=== PATIENT | male | born 2000 ===

== ENCOUNTER 2019-03-10 04:50 | Emergency (ER) | payer OTHER ==
--- NOTE | 2019-03-10 06:39 | ED ---
Psychiatric Complaint - HPI Summary HPI Summary: Pt is a 18yo M presenting voluntarily to the ED by police after allegedly making statements to his friends over tonight and throughout the past week regarding suicidal thoughts. He denies this. According to records and collateral (Ellie Urban, counselor/therapist at [facility]) pt has been making these statements after drinking ETOH tonight starting at around midnight (5 hours [employer]AD[employer] DIES). However, he has also allegedly been making these statements over the past week. Stating things like "goodbye" and "I won't kill myself because there are too many people around." Pt denies SI/HI. Denies self harm. Denies ETOH use or drug use. States he is here voluntary because was told by police if he did not come now, he would have to come within the next 72 hours as involuntary. Denies any pain. Denies drug use. - History Of Current Complaint Chief Complaint: EDMentalHealth Time Seen by Provider: 03/10/19 05:42 Hx Obtained From: Patient Onset/Duration: Sudden Onset Timing: Constant Severity Initially: Moderate Severity Currently: Moderate Aggravating Factor(s): Nothing Alleviating Factor(s): Nothing Associated Signs And Symptoms: Positive: Negative Has Suicidal: Reports: Thoughts - per his friends - Risk Factor(s) Completed Suicide Risk Factors: Male, White [place]i - Allergies/Home Medications Allergies/Adverse Reactions: Allergies Allergy/AdvReac Type Severity Reaction Status Date / Time No Known Allergies Allergy Verified 03/10/19 05:10 Home Medications: Home Medications NK [No Home Medications Reported] 03/10/19 [History Confirmed 03/10/19] PMH/Surg Hx/FS Hx/Imm Hx Previously Healthy: Yes - Immunization History Hx Pertussis Vaccination: No Immunizations Up to Date: Yes Infectious Disease History: No Infectious Disease History: Denies: Traveled Outside the [place] in Last 30 Days - Social History Occupation: Unemployed, Student Lives: Dormitory/Roommates Alcohol Use: None Hx Substance Use: No Substance Use Type: Reports: None Hx Tobacco Use: No Smoking Status (MU): Never Smoked Tobacco Review of Systems Negative: Fever, Chills, Fatigue, Skin Diaphoresis Negative: Palpitations, Chest Pain Negative: Shortness Of Breath, Cough Genitourinary: Negative Positive: no symptoms reported, see HPI Negative: Arthralgia, Myalgia Negative: Rash, Bruising Neurological: Negative Positive: Other - does not state depression or anxiety All Other Systems Reviewed And Are Negative: Yes Physical Exam Triage Information Reviewed: Yes Vital Signs On Initial Exam: Initial Vitals Temp Pulse Resp BP Pulse Ox 99.3 F 98 16 139/99 100 03/10/19 05:00 03/10/19 05:00 03/10/19 05:00 03/10/19 05:00 03/10/19 05:00 Vital Signs Reviewed: Yes Appearance: Positive: Well-Appearing, Well-Nourished Skin: Positive: Warm, Skin Color Reflects Adequate Perfusion Head/Face: Positive: Normal Head/Face Inspection Eyes: Positive: EOMI, BLAS, Conjunctiva Clear Neck: Positive: Supple, No Lymphadenopathy Respiratory/Lung Sounds: Positive: Breath Sounds Present Cardiovascular: Positive: Pulses are Symmetrical in both Upper and Lower Extremities Musculoskeletal: Positive: Normal, Strength/ROM Intact Neurological: Positive: Sensory/Motor Intact, Speech Normal Psychiatric: Positive: Normal, Affect/Mood Appropriate AVPU Assessment: Alert Procedures - Sedation Patient Received Moderate/Deep Sedation with Procedure: No Diagnostics - Vital Signs Vital Signs Temp Pulse Resp BP Pulse Ox 03/10/19 05:00 99.3 F 98 16 139/99 100 - Laboratory Lab Statement: Any lab studies that have been ordered have been reviewed, and results considered in the medical decision making process. Course/Dx - Course Course Of Treatment: Pt arrives voluntary by EMS. Spoke with Ellie Urban, counselor who states pt has been making comments to his friends x 1 week and again last night stating "goodbye." Pt denies this. Discussed with pt will obtain alcohol and have MHE. He is agreeable to this. Alcohol 35. Pt agitated he is not discharged yet. Complete MHE. Discussed with Dr. Headley who recommends collateral. He continues to be agitated for the fact he is not DC' d. Per Dr. Headley after obtained collateral, pt will be DC'd. PATIENT HAS AN APPOINTMENT WITH [facility] AT [facility] TOMORROW AT 2:30 PM. Dx with alcohol ingestion and comments of suicidal ideation prior to arrival. - Differential Dx/Clinical Impression Differential Diagnosis/HQI/PQRI: Positive: Suicidal Ideation, Other - suicidal comments Provider Diagnosis: Alcohol ingestion, Suicidal ideation - Physician Notifications Discussed Care Of Patient With: Rmaon Headley Discharge ED - Sign-Out/Discharge Documenting (check all that apply): Patient Departure - Discharge Plan Condition: Good Disposition: HOME Referrals: No Primary Care Phys,NOPCP [Primary Care Provider] - - Billing Disposition and Condition Condition: GOOD Disposition: Home
[2019-03-10 10:24] VITALS: BP 150/61
[2019-03-10] MEDS ORDERED: Lidocaine 1% MPF ** 5 ML VIAL ONE (10:26)
== END 2019-03-10 10:15 | disposition home or self-care (01) ==
LOC: ED 04:50
DX: R45.851 Suicidal ideations (principal); F10.929 Alcohol use, unspecified with intoxication, unspecified
CPT/HCPCS: 36415; 80320; 99285; G0480

== ENCOUNTER 2019-04-01 03:36 | Inpatient (IN) | payer OTHER ==
--- NOTE | 2019-04-01 03:49 | ED ---
Psychiatric Complaint - HPI Summary HPI Summary: Patient is a 18 y/o M presenting to [facility] under 941 status for SI. The patient had called his mother earlier tonight claiming that he was going to jump off of a bridge. Mother, who lives in [place], called police, who subsequently got in contact with [place] police. Patient had disconnected from the mother. The police had searched [facility] but did not find the patient on any bridges. They were able to locate the patient to his room in a fraternity house. Police were able to obtain entry into the patient's room. EMS reports that they had asked the patient whether or not he had SI and the patient had replied, "I'm not denying it". Patient denies PMHx, daily meds, alcohol/ substance usage, and any injuries. On triage, pain is denied, nothing is noted to aggravate/alleviate Sx. Home medications and allergies are reviewed. - History Of Current Complaint Hx Obtained From: Patient Onset/Duration: Still Present Timing: Constant Severity Currently: None - pain denied Character: Depressed Aggravating Factor(s): Nothing Alleviating Factor(s): Nothing Has Suicidal: Reports: Thoughts - Allergies/Home Medications Allergies/Adverse Reactions: Allergies Allergy/AdvReac Type Severity Reaction Status Date / Time No Known Allergies Allergy Verified 03/10/19 05:10 PMH/Surg Hx/FS Hx/Imm Hx Previously Healthy: Yes Sensory History: Denies: Hx Legally Blind, Hx Deafness Opthamlomology History: Denies: Hx Legally Blind EENT History: Denies: Hx Deafness Psychiatric History: Denies: Hx Eating Disorder, Hx of Violent Episodes Against Others - Family History Known Family History: Positive: Other - No FMHx of depression - Social History Alcohol Use: None Hx Substance Use: No Substance Use Type: Reports: None Hx Tobacco Use: No Smoking Status (MU): Never Smoked Tobacco Review of Systems Negative: Fever - on vitals, temp is 97.8 F Psychological: Other - positive - SI All Other Systems Reviewed And Are Negative: Yes Physical Exam - Summary Physical Exam Summary: Appearance: Well-appearing, Well-nourished, lying in bed comfortable Skin: Warm, dry, no obvious rash Eyes: sclera anicteric, no conjunctival pallor ENT: mucous membranes moist Neck: deferred Respiratory: No signs of respiratory distress Cardiovascular: Appears well perfused, pulses are nml Abdomen: deferred Musculoskeletal: Moving all 4 extremities without obvious discomfort Neurological: Awake and alert, mentation is normal, speech is fluent and appropriate Psychiatric: affect is normal, does not appear anxious or depressed Triage Information Reviewed: Yes Vital Signs Reviewed: Yes Procedures - Sedation Patient Received Moderate/Deep Sedation with Procedure: No Diagnostics - Laboratory Result Diagrams: 04/01/19 03:53 04/01/19 03:53 Lab Statement: Any lab studies that have been ordered have been reviewed, and results considered in the medical decision making process. Re-Evaluation - Re-Evaluation First Eval Re-Evaluation Time: 04:10 Comment: Patient is medically cleared for MHE. Course/Dx - Course Course Of Treatment: Patient is a 18 y/o M presenting to [facility] under 941 status for SI. The patient had called his mother earlier tonight claiming that he was going to jump off of a bridge. Mother, who lives in [place], called police , who subsequently got in contact with [place] police. Patient had disconnected from the mother. The police had searched [facility] but did not find the patient on any bridges. They were able to locate the patient to his room in a fraternity house. Police were able to obtain entry into the patient's room. EMS reports that they had asked the patient whether or not he had SI and the patient had replied, "I'm not denying it". Patient denies PMHx, daily meds, alcohol/substance usage, and any injuries. Tox screen was obtained. Serum alcohol was 156. Presumptive positive of cannabinoids is noted. Other abnormal values include Hgb 13.6, Hct 41. Patient was medically cleared and received MHE. Patient is signed out to Dr. Lewis at 0700 04/01/19 shift change pending disposition of this mental health patient. - Differential Dx/Clinical Impression Provider Diagnosis: Depression, Suicidal ideation Discharge ED - Sign-Out/Discharge Documenting (check all that apply): Sign-Out Patient Signing out patient TO: Mo Lweis - Discharge Plan Condition: Stable Disposition: PSYCHIATRIC FACILITY-[facility] [place] - Billing Disposition and Condition Condition: STABLE Disposition: Psychiatric Facility [facility] [place] - Attestation Statements Document Initiated by Scribe: Yes Documenting Scribe: OCHOA KELLEY Provider For Whom Scribe is Documenting (Include Credential): MD Chaitanya GARZON Attestation: I, OCHOA KELLEY, scribed for MIKEL ALCANTARA MD on 04/03/19 at 1844. Scribe Documentation Reviewed: Yes Provider Attestation: The documentation as recorded by the scribeOCHOA accurately reflects the service I personally performed and the decisions made by me, MIKEL ALCANTARA MD Status of Scribe Document: Viewed
[2019-04-01 04:02] LABS: ABS Eosinophils 0.1 10^3/ul (0-0.6); ABS Lymphocytes 3.1 10^3/ul (1.0-4.8); ABS Monocytes 0.6 10^3/ul (0-0.8); Eosinophil % 1.1 %; Hematocrit 41 % (42-52); Hemoglobin 13.6 g/dL (14.0-18.0); Lymphocyte % 35.3 %; Mean Corpuscular HGB Conc 34 g/dL (31-36); Mean Corpuscular Hemoglobin 29 pg (27-31); Mean Corpuscular Volume 87 fL (80-94); Mean Platelet Volume 8.4 fL (7.4-10.4); Nucleated Red Blood Cells % 0.3; Platelet Count 210 10^3/uL (150-450); Red Blood Count 4.68 10^6 /uL (4.18-5.48); Red Cell Distribution Width 13 % (10-15); White Blood Count 8.7 10^3/uL (3.5-10.8)
[2019-04-01 04:13] LABS: Urine Appearance Clear; Urine Bilirubin Negative (Negative); Urine Blood Negative (Negative); Urine Color Straw; Urine Glucose Negative (Negative); Urine Ketones Negative (Negative); Urine Nitrite Negative (Negative); Urine Protein Negative (Negative); Urine Specific Gravity 1.006 (1.010-1.030); Urine Urobilinogen Negative (Negative)
[2019-04-01 04:17] LABS: ALT 27 U/L (7-52); AST 28 U/L (13-39); Albumin 5.1 g/dL (3.2-5.2); Albumin/Globulin Ratio 1.9 (1-3); Alkaline Phosphatase 74 U/L (34-104); Anion Gap 8 mmol/L (2-11); Blood Urea Nitrogen 12 mg/dL (6-24); CO2 Carbon Dioxide 25 mmol/L (22-32); Calcium 9.9 mg/dL (8.6-10.3); Chloride 107 mmol/L (101-111); EGFR African American 115.3 (>60); EGFR Non-African American 95.3 (>60); Globulin 2.7 g/dL (2-4); Glucose 90 mg/dL (70-100); Potassium 4.2 mmol/L (3.5-5.0); Sodium 140 mmol/L (135-145); Total Protein 7.8 g/dL (6.4-8.9)
[2019-04-01 04:22] LABS: Urine Benzodiazepine Screen None Detected (None Detect); Urine Opiates Screen None Detected (None Detect)
[2019-04-01 04:40] LABS: Acetaminophen < 15 mcg/mL; Alcohol 156 mg/dL (<10); Salicylate < 2.50 mg/dL (<30)
[2019-04-01 05:19] LABS: TSH (Thyroid Stimulating Horm) 3.05 mcIU/mL (0.34-5.60)
--- NOTE | 2019-04-01 07:06 | ED ---
Progress - Progress Note Progress Note: Receiving sign-out from Dr. Fajardo at shift change 0700 04/01/19. MHE decided to admit the patient with a diagnosis of unspecified depression, per Dr. Headley, Psychiatry. - Consult/PCP Time Called: :19 Re-Evaluation - Re-Evaluation First Eval Re-Evaluation Time: 04:10 Comment: Patient is medically cleared for MHE. Course/Dx - Course Course Of Treatment: Receiving sign-out from Dr. Fajardo at shift change 0700 04/01/19. MHE decided to admit the patient with a diagnosis of unspecified depression, per Dr. Headley, Psychiatry. - Diagnoses Provider Diagnoses: Depression Discharge ED - Sign-Out/Discharge Documenting (check all that apply): Patient Departure - Admission, per MHE - Discharge Plan Condition: Stable Disposition: PSYCHIATRIC FACILITY-[facility] [place] Referrals: No Primary Care Phys,NOPCP [Primary Care Provider] - - Billing Disposition and Condition Condition: STABLE Disposition: Psychiatric Facility [facility] [place] - Attestation Statements Document Initiated by Chaitanya: Yes Documenting Scribe: Ananth Driscoll Provider For Whom Chaitanya is Documenting (Include Credential): Mo Lewis MD Scribe Attestation: Ananth Bradshaw, scribed for Mo Lewis MD on 04/01/19 at 1134. Scribe Documentation Reviewed: Yes Provider Attestation: The documentation as recorded by the Ananth rodríguez accurately reflects the service I personally performed and the decisions made by me, Mo Lewis MD Status of Scribe Document: Viewed
[2019-04-01] MEDS ORDERED: Al Hydrox/Mg Hydrox/Simet LIQ* 30 ML UDC PO PRN (11:22)
[2019-04-01] MEDS ORDERED: Acetaminophen TAB* 325 MG PO PRN (11:22)
--- NOTE | 2019-04-01 14:21 | HP ---
H&P (Free Text) History and Physical: Justification for admission: Immediate Safety. CC " I am depressed" The patient was brought to [facility] by campus police. The patient reported being suicidal with a plan to jump off a bridge, He has been isolating himself from his friends. He stated " I tell my friends that I cant hang out but am not able to tell them why and the reason is because I am depressed." The patient reported that he was talking to his mother last night and told her how he was thinking of suicide she called campus police to check on him and later found him and brought him to the hospital. Denied access to firearms or stockpiles of medications. He reported poor sleep and appetite. He identifies one of his biggest frustrations to be not being able to experience pleasure. The patient denied homicidal ideation intent or plan. The patient denied auditory and/ or visual hallucinations. MDD Reported feeling depressed with diminished interests which were found to be enjoyable in the past. Reported having crying spells with feelings of hopelessness , and worthlessness. He reported interruption of sleep , and feeling tired throughout the day. Anxiety Denied having symptoms of anxiety such as having times where heart feels that it is beating out of chest , sweaty palms, or shallow breathing. Denied having uncomfortable or intrusive thoughts. Denied feeling restless, high strung, or worrying too much most of the time. Bipolar Denied symptoms of dudley such as having many ideas at once. Denied increased talkativeness where no one can interrupt. Denied feeling irritable most of the time while having an persistent abundance of energy most of the day without the use of energy drinks, stimulants, or recreational drug use. Denied an increase in intensity in goal directed activities. Denied having the decreased need to sleep for days , having prolonged elevated mood , or feeling on top of the world. Denied impulsive risky sexual encounters. Denied spending money recklessly , going on spending sprees wiping out savings. Denied impulsively traveling out of town or country, having super gunn, and unrealistic wealth or fame. Psychosis Does not endorse hearing things that other people do not hear or seeing things other people do not see. Denied feeling that TV is making references. Denied feeling that people are spying , following , or reading their thoughts. Phobias: Patient denied having excessive fear of a particular thing or situation. Eating disorders: Patient denied having excessive eating habits or feelings of guilt after eating. Denied repeated episodes of self induced vomiting after eating. PTSD Denied flashbacks, nightmares and avoidance of a prior traumatic event. PAST PSYCHIATRIC HISTORY: Prior Diagnosis : None History of past Psychiatric Hospitalizations: No prior psychiatric admission. History of past suicide/homicide attempts : Denied past suicide attempts or self injurious behaviors. No history of violence. Outpatient follow-up: [facility] Medications: No Past trials of medication Guardianship: None. FAMILY HISTORY: - Suicide: Denied family history of suicide. - Mental illness: Identify his mother and father to have depression - Substance abuse: Father abuses alcohol and sleeping pills SUBSTANCE ABUSE HISTORY: - EtOH: Uses occasionally denied alcohol to be a problem denied binge drinking - Tobacco: Denied using recently or in the past. - Cannabis: Has used in the past uses once a week - Heroin: Denied - Cocaine: Denied - Substance abuse treatment: Denied past substance abuse treatment SOCIAL HISTORY: - Denied a history of childhood physical and or sexual abuse Born in [place] [facility] and raised by his mother. His father is not in his life. - Education: Currently a [employer] student studying business and [employer]. No history of special education. - Living situation: Currently lives in [facility] - Employment history: None - Relationship: Single and has no children. - Legal history: Denied - service history: Denied PAST MEDICAL HISTORY: Denied heart disease, diabetes, cancer and/ or other medical conditions. - Allergies: Denied drug or other allergies. Physical Exam: Please see ED note Mental Status Exam on Admission APPEARANCE : 18 year old Male who appears stated age. Patient is not malodourous, and appears to have fair hygiene and grooming. BEHAVIOR: Cooperative , calm EYE CONTACT: Fair PSYCHOMOTOR ACTIVITY: No psychomotor agitation or retardation. MOVEMENTS: No abnormal movements observed. SPEECH : Normal rate, rhythm, volume and tone. MOOD : "Sad " AFFECT : Type is depressed, Range is restricted Mood Congruent THOUGHT PROCESS: Formulated and organized in a logical, linear goal directed manner. No flight of ideas, neologism (made up words) , perseveration , tangential , loose associations , or circumstantiality. THOUGHT CONTENT: no delusions, obsessions, phobias or preoccupations. PERCEPTION: No current auditory or visual hallucinations. Doesnt appear to be responding to internal cues. No evidence of depersonalization , de-realization, or illusions SUICIDALITY suicidal ideation with plan to jump from bridge HOMICIDALITY Denied homicidal ideation, intent or plan. Insight/judgment: Poor insight and judgment ORIENTATION: Oriented to self, location, and time. Diagnosis on Admission: Major depressive disorder, severe. Assessment: 18 year old male [employer] Student with no prior psychiatric history and currently suicidal came to the hospital and was admitted to the BSU at [facility]. Plan #Admit to BSU, Q15 minute observation. Start regular diet. Encourage participation in activities on the milieu. #Patient evaluated in ED and was determined by the emergency room Physician to be medically fit for admission to the BSU. # Justification for Admission: For immediate safety per outlined in the [facility] Hygiene Code. # The patient requires psychiatric inpatient admission at this time to assure safety, receive treatment and work toward stabilization. # Labs ordered: CBC, CMP, UDS, TSH, HBA1c, TSH, Toxicology screen, Urine analysis, and lipid profile. # Obtain collateral information once release is signed. # Collaboration with Social Work #Start remeron 7.5mg daily and lexapro 10mg daily #Goals before discharge include: To eliminate/ reduce suicidal ideation Tentative Discharge: Pending psychiatric stabilization The risks, benefits, and alternative treatment options were discussed as well as the risks of refusing treatment. After this discussion and an acknowledgement of this understanding was made. A risk/ benefit assessment of treatment was considered and discussed with the patient. When comparing the risks of treatment with the dangers of not receiving treatment, the benefits of treatment outweigh the treatment risks at this time. Risks of allergy, suicidal ideation, behavioral changes, dystonia, rashes, electrolyte imbalances, movement disorders, cardiac conduction changes, serotonin syndrome, metabolic risks were among some of the risks discussed. Acetaminophen (Tylenol Tab*) 650 mg PO Q4H PRN PRN Reason: for pain; or Temp >101 F Al Hydrox/Mg Hydrox/Simethicone (Maalox Plus*) 30 ml PO Q4H PRN PRN Reason: INDIGESTION Escitalopram Oxalate (Lexapro *) 10 mg PO DAILY SOL Hydroxyzine HCl (Atarax Tab*) 50 mg PO Q6H PRN PRN Reason: anxiety Mirtazapine (Remeron Tab*) 7.5 mg PO BEDTIME PRN PRN Reason: SLEEP Sodium 140 mmol/L (135-145) 04/01/19 03:53 Potassium 4.2 mmol/L (3.5-5.0) 04/01/19 03:53 BUN 12 mg/dL (6-24) 04/01/19 03:53 Creatinine 1.00 mg/dL (0.67-1.17) 04/01/19 03:53 Calcium 9.9 mg/dL (8.6-10.3) 04/01/19 03:53 AST 28 U/L (13-39) 04/01/19 03:53 ALT 27 U/L (7-52) 04/01/19 03:53
[2019-04-01] MEDS: Escitalopram * 10 MG TAB PO SCH (16:22)
[2019-04-02] MEDS: hydrOXYzine HCL TAB* 50 MG PO PRN (12:57)
[2019-04-02] MEDS: Escitalopram * 10 MG TAB PO SCH (12:57)
[2019-04-02] MEDS: Mirtazapine TAB* 15 MG PO PRN (22:45)
[2019-04-03] MEDS: Escitalopram * 10 MG TAB PO SCH (08:56)
--- NOTE | 2019-04-03 17:00 | PN ---
Subjective - Subjective Date of Service: 04/03/19 Service Type: 80108 Hosp care 25 min moderate complexity Subjective: Russell reports that he has been feeling a lot better since his admission and hasn 't thought about suicide since. Denies any mood symptoms. However wants to know if he could continue to smoke pot and drink alcohol as before. Was told NO. Was in the milieu with a goup of students and happy. Objective - General Observations Appearance: Well Groomed Appears Stated Age: Yes Stature: WNL Posture: WNL Eye Contact: Average Behavior/Activity: WNL - Interaction Observations Attitude Towards Examiner: Cooperative Stated Mood: Euthymic Affect: Full Speech Pattern/Tone: Clear, Appropriate, Normal Volume Thought Process: Coherent, Goal Directed Perception: WNL Hallucination Type: Denies Delusion Type: Denies - Cognitive Function Orientation: A&O x 4 Level of Consciousness: Awake, Alert, Appropriate Cognition: WNL Estimated Intelligence: Normal Insight: WNL Judgment Within Normal Limits: Yes Ability to Make Reasonable Decisions: Mildly Impaired - Medication Compliance Cooperative with Inpatient Medication Regimen: Yes - Group Participation Participates in Group Activities: Yes Assessment - Assessment Merits Inpatient Hospitalization: For Stabilization, Pending Safe DC Plan Plan - Plan Treatment Plan: Name: RUSSELL NAPOLES Birthdate: 2000 [id number] Continued Medication Management: Continue Outpt Medication Medications: Current Medications Acetaminophen (Tylenol Tab*) 650 mg PO Q4H PRN PRN Reason: for pain; or Temp >101 F Al Hydrox/Mg Hydrox/Simethicone (Maalox Plus*) 30 ml PO Q4H PRN PRN Reason: INDIGESTION Escitalopram Oxalate (Lexapro *) 10 mg PO DAILY SOL Last Admin: 04/03/19 08:56 Dose: 10 mg Hydroxyzine HCl (Atarax Tab*) 50 mg PO Q6H PRN PRN Reason: anxiety Last Admin: 04/02/19 12:57 Dose: 50 mg Mirtazapine (Remeron Tab*) 7.5 mg PO BEDTIME PRN PRN Reason: SLEEP Last Admin: 04/02/19 22:45 Dose: 7.5 mg - Discharge Plan Discharge Plan: Outpatient Follow Up Outpatient Program: Counseling[facility]Psych Services at [facility]
[2019-04-03] MEDS: Mirtazapine TAB* 15 MG PO PRN (22:22)
[2019-04-04] MEDS: Escitalopram * 10 MG TAB PO SCH (09:00)
[2019-04-04] MEDS: hydrOXYzine HCL TAB* 50 MG PO PRN (09:53)
--- NOTE | 2019-04-04 10:53 | PN ---
Subjective - Subjective Date of Service: 04/04/19 Service Type: 81265 Hosp care 35 min high complexity Subjective: Nursing Report: Patient was visible on unit, no behavioral incidents. Slept overnight. He is attending group activities. CC: "I feel better" Patient was seen and evaluated in the common room. He feels good that his mother came to visit him in the hospital. The patient reported he feels safe on the unit and is interacting with peers. He feels better knowing that other people have struggled with depression. He reported having adequate appetite and sleep. The patient reports attending and participating in day groups. Per nursing no behavioral issues or overnight events reported. Patient reported that he is tolerating medications without side effects. Objective - General Observations Appearance: Neat Appears Stated Age: Yes Stature: WNL Posture: WNL Eye Contact: Average Behavior/Activity: WNL - Interaction Observations Attitude Towards Examiner: Cooperative Stated Mood: Euthymic Affect: Full Speech Pattern/Tone: Clear Thought Process: Coherent Perception: WNL Thought Content: WNL Hallucination Type: None Delusion Type: None - Cognitive Function Orientation: A&O x 4 Level of Consciousness: Awake - Medication Compliance Cooperative with Inpatient Medication Regimen: Yes - Group Participation Participates in Group Activities: Yes Assessment - Assessment Merits Inpatient Hospitalization: For Immediate Safety Clinical Impression: 18 year old male [employer] Student with no prior psychiatric history and had suicidal ideation and was admitted to the BSU at [facility]. Plan - Plan Treatment Plan: Name: JANETH NAPOLES Birthdate: 2000 [id number] #Q30 minute observation with staff pass and computer # The patient requires psychiatric inpatient admission at this time to assure safety, receive treatment and work toward stabilization. # Obtained collateral information from mother and confirmed no access to guns or stockpiles of medications, felt safe for discharge tomorrow. # Collaboration with Social Work # Follow up appointment with [facility] #Continue Remeron 7.5mg daily and lexapro 10mg daily #Goals before discharge include: To eliminate/ reduce suicidal ideation # Tentative discharge:Tomorrow Sodium 140 mmol/L (135-145) 04/01/19 03:53 Potassium 4.2 mmol/L (3.5-5.0) 04/01/19 03:53 BUN 12 mg/dL (6-24) 04/01/19 03:53 Creatinine 1.00 mg/dL (0.67-1.17) 04/01/19 03:53 Hemoglobin A1c 5.0 % (4.0-5.6) 04/02/19 06:46 Calcium 9.9 mg/dL (8.6-10.3) 04/01/19 03:53 AST 28 U/L (13-39) 04/01/19 03:53 ALT 27 U/L (7-52) 04/01/19 03:53 Triglycerides 62 mg/dL 04/02/19 06:46 Cholesterol 183 mg/dL 04/02/19 06:46 LDL Cholesterol 85 mg/dL 04/02/19 06:46 Continued Medication Management: Continue Outpt Medication Medications: Current Medications Acetaminophen (Tylenol Tab*) 650 mg PO Q4H PRN PRN Reason: for pain; or Temp >101 F Al Hydrox/Mg Hydrox/Simethicone (Maalox Plus*) 30 ml PO Q4H PRN PRN Reason: INDIGESTION Escitalopram Oxalate (Lexapro *) 10 mg PO DAILY SOL Last Admin: 04/04/19 09:00 Dose: 10 mg Hydroxyzine HCl (Atarax Tab*) 50 mg PO Q6H PRN PRN Reason: anxiety Last Admin: 04/04/19 09:53 Dose: 50 mg Mirtazapine (Remeron Tab*) 7.5 mg PO BEDTIME PRN PRN Reason: SLEEP Last Admin: 04/03/19 22:22 Dose: 7.5 mg - Discharge Plan Discharge Plan: Inpatient Hospitalization Outpatient Program: Counseling/Psych Services at [place]
[2019-04-04] MEDS: Mirtazapine TAB* 15 MG PO PRN (21:46)
[2019-04-05 09:09] VITALS: BP 133/99
[2019-04-05] MEDS: Escitalopram * 10 MG TAB PO SCH (09:36)
--- NOTE | 2019-04-05 09:54 | DS ---
Subjective - Subjective Service Types: 08119 [facility] Day Mgmt complex over 30 min Discharge Date: 04/05/19 Subjective: CC: " Good" Patient looks forward to finishing school. He plans to meet with [place] at [facility] today at 2pm. His mother is going to pick him up. The patient was seen and evaluated before discharge today. The patient reported having adequate appetite and sleep. The patient reports attending and participating in day groups. Per nursing no behavioral issues or overnight events reported. Patient reported tolerating medications without side effects. Justification for admission: Immediate Safety. CC " I am depressed" The patient was brought to [facility] by [place] police. The patient reported being suicidal with a plan to jump off a bridge, He has been isolating himself from his friends. He stated " I tell my friends that I cant hang out but am not able to tell them why and the reason is because I am depressed." The patient reported that he was talking to his mother last night and told her how he was thinking of suicide she called [place] police to check on him and later found him and brought him to the hospital. Denied access to firearms or stockpiles of medications. He reported poor sleep and appetite. He identifies one of his biggest frustrations to be not being able to experience pleasure. The patient denied homicidal ideation intent or plan. The patient denied auditory and/ or visual hallucinations. MDD Reported feeling depressed with diminished interests which were found to be enjoyable in the past. Reported having crying spells with feelings of hopelessness , and worthlessness. He reported interruption of sleep , and feeling tired throughout the day. Anxiety Denied having symptoms of anxiety such as having times where heart feels that it is beating out of chest , sweaty palms, or shallow breathing. Denied having uncomfortable or intrusive thoughts. Denied feeling restless, high strung, or worrying too much most of the time. Bipolar Denied symptoms of dudley such as having many ideas at once. Denied increased talkativeness where no one can interrupt. Denied feeling irritable most of the time while having an persistent abundance of energy most of the day without the use of energy drinks, stimulants, or recreational drug use. Denied an increase in intensity in goal directed activities. Denied having the decreased need to sleep for days , having prolonged elevated mood , or feeling on top of the world. Denied impulsive risky sexual encounters. Denied spending money recklessly , going on spending sprees wiping out savings. Denied impulsively traveling out of town or country, having super gunn, and unrealistic wealth or fame. Psychosis Does not endorse hearing things that other people do not hear or seeing things other people do not see. Denied feeling that TV is making references. Denied feeling that people are spying , following , or reading their thoughts. Phobias: Patient denied having excessive fear of a particular thing or situation. Eating disorders: Patient denied having excessive eating habits or feelings of guilt after eating. Denied repeated episodes of self induced vomiting after eating. PTSD Denied flashbacks, nightmares and avoidance of a prior traumatic event. PAST PSYCHIATRIC HISTORY: Prior Diagnosis : None History of past Psychiatric Hospitalizations: No prior psychiatric admission. History of past suicide/homicide attempts : Denied past suicide attempts or self injurious behaviors. No history of violence. Outpatient follow-up: [facility] Medications: No Past trials of medication Guardianship: None. FAMILY HISTORY: - Suicide: Denied family history of suicide. - Mental illness: Identify his mother and father to have depression - Substance abuse: Father abuses alcohol and sleeping pills SUBSTANCE ABUSE HISTORY: - EtOH: Uses occasionally denied alcohol to be a problem denied binge drinking - Tobacco: Denied using recently or in the past. - Cannabis: Has used in the past uses once a week - Heroin: Denied - Cocaine: Denied - Substance abuse treatment: Denied past substance abuse treatment SOCIAL HISTORY: - Denied a history of childhood physical and or sexual abuse Born in [facility] and raised by his mother. His father is not in his life. - Education: Currently a [employer] student studying business and [employer]. No history of special education. - Living situation: Currently lives in [facility] - Employment history: None - Relationship: Single and has no children. - Legal history: Denied - service history: Denied PAST MEDICAL HISTORY: Denied heart disease, diabetes, cancer and/ or other medical conditions. - Allergies: Denied drug or other allergies. Physical Exam: Please see ED note Mental Status Exam on Admission APPEARANCE : 18 year old Male who appears stated age. Patient is not malodourous, and appears to have fair hygiene and grooming. BEHAVIOR: Cooperative , calm EYE CONTACT: Fair PSYCHOMOTOR ACTIVITY: No psychomotor agitation or retardation. MOVEMENTS: No abnormal movements observed. SPEECH : Normal rate, rhythm, volume and tone. MOOD : "Sad " AFFECT : Type is depressed, Range is restricted Mood Congruent THOUGHT PROCESS: Formulated and organized in a logical, linear goal directed manner. No flight of ideas, neologism (made up words) , perseveration , tangential , loose associations , or circumstantiality. THOUGHT CONTENT: no delusions, obsessions, phobias or preoccupations. PERCEPTION: No current auditory or visual hallucinations. Doesnt appear to be responding to internal cues. No evidence of depersonalization , de-realization, or illusions SUICIDALITY suicidal ideation with plan to jump from bridge HOMICIDALITY Denied homicidal ideation, intent or plan. Insight/judgment: Poor insight and judgment ORIENTATION: Oriented to self, location, and time. Diagnosis on Admission: Major depressive disorder, severe. Diagnosis on Discharge: Major depressive disorder, in partial remission Condition at the time of discharge: At the time of discharge patient showed improvement of sleep and appetite. The patient was not a danger to self or others. The patient denied suicidal ideation, intent or plan. The patient denied homicidal targets, ideation, intent or plan. This patient participated in psychosocial rehabilitation and gained some insight into problems. The patient gained insight into mental illness, triggers, and treatment. The patient took medication as prescribed. The patient denied side effects of medication and objective signs of side effects were not evident. Therapy Resources were offered to the patient. Patient was given a supply of prescriptions at the time of discharge. The patient plans to attend follow up care with the follow up arrangements that were discussed and put in place. Patient was asked to keep appointments as scheduled, take medication as prescribed, have routine follow up care with their primary care physician and refrain from any use of alcohol or drugs. Objective - General Observations Appearance: Neat Appears Stated Age: Yes Stature: WNL Posture: WNL Eye Contact: Average Behavior/Activity: WNL - Interaction Observations Attitude Towards Examiner: Cooperative Stated Mood: Euthymic Affect: Full Speech Pattern/Tone: Clear Thought Process: Coherent Perception: WNL Thought Content: WNL Hallucination Type: None Delusion Type: None - Cognitive Function Orientation: A&O x 4 Level of Consciousness: Awake Judgment Within Normal Limits: Yes - Medication Compliance Cooperative with Inpatient Medication Regimen: Yes - Group Participation Participates in Group Activities: Yes Treatment Course & Assessment Clinical Course & Impression: Hospital course part A: 18 year old male [employer] Student with no prior psychiatric history and had suicidal ideation and was admitted to the BSU at [facility]. Hospital course part B: Labs ordered included CBC, CMP, UDS, TSH, HBA1c, TSH, Toxicology screen, Urine analysis, and lipid profile. Labs were reviewed and did not require the need for further evaluation. Vital signs were monitored during the course of admission. The patient was admitted to the adult behavioral unit and placed on 15 minute check for safety. At a later time the patient was on Q30 minute observation and staff pass privileges. With those limits being extended, patient was safe on all checks and there were no occurrence of behavioral incidents. The patient did well on the unit and went to groups. Interacted with peers had adequate sleep and regular appetite. Tolerated medication changes without side effects. Group therapy and services were offered. The risks, benefits, and alternative treatment options were discussed as well as of the risks of refusing treatment. Treatment associated risks discussed. After this discussion made an acknowledgement of this understanding. Follow up care appointments were put in place. The importance of monitoring for metabolic changes was discussed and acknowledgement of this understanding was made. The patient was informed not to abruptly stop or start new medications before consulting with a medical professional. Improvements in patient from the time of admission include: Improved affect, sleep and decrease in anxiety. The patient expressed readiness for discharge home. The patient presents with a broader range of affect, and the absence of depressed mood, delusions, perceptual disturbance. The patient denied suicidal and or homicidal ideation intent or plan. Overall, the patient responded well to inpatient treatment as evidenced by their report of strengthening of coping mechanisms, reduced distress, and more positive outlook on circumstances. Of note there was an improvement of recognizing how emotional state can effect mood and behavior. Safety precautions were put in place which included involving the patient and their family to closely monitor for changes in mental state. In addition, implementing follow up care, screening for the need to remove/securing firearms , weapons and stockpile of medications. Patient/ family instructed to immediately call 911 should any safety concerns arise. The patient was advised of the 24 hour / 7 days a week availability of the emergency room and to call 911 in the event of an emergency such as being suicidal and/ or homicidal. The patient was informed of the contact information for [facility], Suicide Prevention and Crisis Services, National Suicide Prevention Lifeline, [facility], Alcoholics Anonymous, and [facility]. Medications started included remeron 7.5mg qhs for sleep and lexapro 10mg po daily for depression. Patient is motivated to get better and has a positive response to treatment. He responded well to social and group setting and found it to be a relief to know others struggle with mental illness Patient at times drinks alcohol. Although he did not endorse this to be problematic in his life, he was informed of and offered cessation resources. Mother was contacted before discharge and confirmed that the patient is at their baseline. At this time both the patient and family are eager for discharge and are in agreement with the discharge plan set forth by the treatment team and can safely receive care in the less restrictive outpatient setting. They were advised on how the days following discharge can be a vulnerable period and to look out for warning signs associated with decompensation and progression of mental illness. They were notified of the resources available in the event these situations arise and confirmed that the patient has no access to firearms or stockpiles of medications. Patient was not assaultive or a behavioral problem during the course of admission. The patient showed improvement of hygiene and was able to carry out activities of daily living. Patient will be discharged to live at home. [facility] appointment at [facility] at 2pm. Patient informed of follow up appointment times. See more details for follow up care in the discharge plan. Risk factors were mitigated by establishing the patients baseline with close contacts and arranging a family meeting. Implementing precautionary safety measures by confirming no stockpiles of medications and no access to firearms , providing mental health treatment, offering substance abuse resources, stabilization of depressive features, arrangement of outpatient continuation of care, as well as provided a supportive care environment and therapy resources during the course of hospitalization. Safety plan was reviewed and discussed with the patient. Risk factors: single, history of depression and family history of depression and suicide attempts, uses alcohol. Protective factors: Currently no suicidal ideation, intent or plan. No prior suicide attempts Has social/ family support system. No history of service. Currently no feelings of hopelessness, not in an occupation of social isolation, doesnt have multiple medical conditions, doesnt have access to firearms. Doesnt have command hallucinations and or psychotic features at this time. No current substance abuse. Not an anniversary of a loss of a loved one. No changes in relationship status, housing, job, or school. Currently future orientated. Patient engaged in treatment and compliant with medication. Sodium 140 mmol/L (135-145) 04/01/19 03:53 Potassium 4.2 mmol/L (3.5-5.0) 04/01/19 03:53 BUN 12 mg/dL (6-24) 04/01/19 03:53 Creatinine 1.00 mg/dL (0.67-1.17) 04/01/19 03:53 Hemoglobin A1c 5.0 % (4.0-5.6) 04/02/19 06:46 Calcium 9.9 mg/dL (8.6-10.3) 04/01/19 03:53 AST 28 U/L (13-39) 04/01/19 03:53 ALT 27 U/L (7-52) 04/01/19 03:53 Triglycerides 62 mg/dL 04/02/19 06:46 Cholesterol 183 mg/dL 04/02/19 06:46 LDL Cholesterol 85 mg/dL 04/02/19 06:46 Merits Inpatient Hospitalization: No Clear for Discharge: Adequate Clinical Respons Discharge Planning - Discharge Planning Discharge Plan: Outpatient Follow Up Outpatient Program: [facility] at [facility] Recommendations for Continuing Care: Medication Management Medications: Current Medications Acetaminophen (Tylenol Tab*) 650 mg PO Q4H PRN PRN Reason: for pain; or Temp >101 F Al Hydrox/Mg Hydrox/Simethicone (Maalox Plus*) 30 ml PO Q4H PRN PRN Reason: INDIGESTION Escitalopram Oxalate (Lexapro *) 10 mg PO DAILY SOL Last Admin: 04/05/19 09:36 Dose: 10 mg Hydroxyzine HCl (Atarax Tab*) 50 mg PO Q6H PRN PRN Reason: anxiety Last Admin: 04/04/19 09:53 Dose: 50 mg Mirtazapine (Remeron Tab*) 7.5 mg PO BEDTIME PRN PRN Reason: SLEEP Last Admin: 04/04/19 21:46 Dose: 7.5 mg Discharge Planning: Prescriptions provided for discharge [x] Yes [] No Follow up care details as per social work arrangements. Patient response to discharge plan: [x] eager for discharge [] agreeable with discharge plan [] ambivalent about discharge [] disagrees with discharge today
== END 2019-04-05 10:00 | disposition home or self-care (01) | DRG 885 ==
LOC: ED 03:36 → BSU 11:22
PROVIDERS: ADMIT Psychiatry & Neurology Psychiatry; ATTEND Psychiatry & Neurology Psychiatry
DX: F33.2 Major depressive disorder, recurrent severe without psychotic features (principal); R45.851 Suicidal ideations; Z81.8 Family history of other mental and behavioral disorders; Z81.1 Family history of alcohol abuse and dependence
CPT/HCPCS: 36415; 80053; 80061; 80307; 80320; 80329; 81003; 83036; 84443; 85025; 99222; 99232; 99233; 99285; A9270-GY; G0480